=== PATIENT | female | born 1950 | race Two or more races ===

== ENCOUNTER 2018-09-11 11:00 | Emergency (ER) | payer BC ==
[2018-09-11] MEDS ORDERED: FAMOTIDINE IV 20 MG in 0.9 % SODIUM CHLORIDE 100ML 50 ML IVPB ONE (11:50)
[2018-09-11] MEDS ORDERED: 0.9 % SODIUM CHLORIDE 1000ML 1,000 ML IV ONE (11:50)
[2018-09-11] MEDS ORDERED: ONDANSETRON HCL IV 4 MG/2 ML VIAL IV ONE (11:50)
[2018-09-11] MEDS ORDERED: SODIUM CHLORIDE 0.9% 500 ML IV ONE (11:50)
[2018-09-11] MEDS ORDERED: MORPHINE SULFATE 10 MG/ML VIAL IVP ONE ×2 (11:51→13:31)
--- NOTE | 2018-09-11 11:54 | Emergency Department Record ---
History of Present Illness - General Chief Complaint: Abdominal Pain Stated Complaint: ABD PAIN Time Seen by Provider: 09/11/18 11:34 Source: Patient Mode of Arrival: Ambulatory Limitations: No limitations - History of Present Illness Initial Comments: Pt with epigastric pain and vomiting onset last PM. No radiation. Hx of similar in past with surgery to remove a portion of pancrease 4 years ago at [facility]. Also removed GB at that time. This occures occasionally and pt had no relief with her Zofran at home. There is no diarrhea, no fever. No change in diet or travel. Onset/Timin -: Days(s) Location: LUQ, RUQ Radiation: None Migration to: No migration Severity: Moderate Severity scale (1-10): 6 Quality: Cramping Consistency: Constant Improves With: Nothing Worsens With: Nothing Associated Symptoms: Nausea, Vomiting - Related Data Allergies Allergy/AdvReac Type Severity Reaction Status Date / Time No Known Drug Allergies Allergy Verified 09/11/18 11:24 Travel Screening - Travel/Exposure Within Last 30 Days Have you traveled within the last 30 days?: No Review of Systems Constitutional: Denies: Chills, Fever, Weakness Eyes: Denies: Eye discharge, Photophobia ENT: Denies: Congestion Respiratory: Denies: Cough, Hemoptysis Cardiovascular: Denies: Arrhythmia, Chest pain, Palpitations Endocrine: Denies: Fatigue, Polydipsia, Polyuria Gastrointestinal: Reports: As per HPI Genitourinary: Denies: Abnormal menses Musculoskeletal: Denies: Arthralgia, Back pain Skin: Denies: Bruising Neurological: Denies: Abnormal gait, Seizure, Tingling Psychiatric: Denies: Anxiety Hematological/Lymphatic: Denies: Anemia Past Medical History - SOCIAL HISTORY Smoking Status: Never smoker Alcohol Use: Occasional Drug Use: None - RESPIRATORY Hx Respiratory Disorders: No - CARDIOVASCULAR Hx Cardio Disorders: Yes Hx Hypertension: Yes Comment:: high cholesterol - NEURO Hx Neuro Disorders: No - GI Hx GI Disorders: Yes Hx Obstructive Bowel: Yes (Partial bowel obstruction) - Hx Genitourinary Disorders: No - ENDOCRINE Hx Endocrine Disorders: No - MUSCULOSKELETAL Hx Musculoskeletal Disorders: No - PSYCH Hx Psych Problems: Yes Hx Depression: Yes - HEMATOLOGY/ONCOLOGY Hx Hematology/Oncology Disorders: Yes Hx Cancer: Yes (Cervical) Hx Chemotherapy: No Hx Radiation Therapy: No Family Medical History Any Significant Family History?: Yes Hx Cancer: Father Hx Diabetes: Mother Hx Heart Disease: Mother Hx HTN: Mother Physical Exam - General General Appearance: Alert, Oriented x3, Cooperative, Moderate distress - Head Head exam: Atraumatic - Eye Eye exam: Normal appearance, PERRL - ENT ENT exam: Normal exam, Mucous membranes moist, Normal external ear exam, Normal orophraynx, TM's normal bilaterally - Neck Neck exam: Normal inspection, Full ROM. negative: Tenderness - Respiratory Respiratory exam: Normal lung sounds bilaterally. negative: Respiratory distress - Cardiovascular Cardiovascular Exam: Regular rate, Normal rhythm, Normal heart sounds - GI/Abdominal GI/Abdominal exam: Soft, Diminished bowel sounds, Tenderness. negative: Distended, Guarding, Organomegaly, Pulsatile mass, Rebound, Rigid - Rectal Rectal exam: Deferred - Extremities Extremities exam: Normal inspection - Back Back exam: Reports: Normal inspection. Denies: Paraspinal tenderness - Neurological Neurological exam: Alert, Normal gait, Oriented X3 - Psychiatric Psychiatric exam: Normal affect, Normal mood - Skin Skin exam: Normal color. negative: Rash Course Vital Signs 09/11/18 11:20 Temperature 98.0 F Pulse Rate 81 Respiratory 18 Rate Blood Pressure 134/84 Pulse Ox 99 - Reevaluation(s) Reevaluation #1: 09/11/18 14:[address] Feeling much better. Nausea and abd pain is gone. Await result of CT. Reevaluation #2: 09/11/18 15:31 CT with SBO and pt request for continuity of care with Dr. Kendy Johns her surgeon. Paged the doctor without reply. Called [facility] ED and Dr. Miranda accepts pt to ED for admission. CD of CT sent with records. Pt and appreciate [facility] transfer at tehir request. Medical Decision Making - Management Options MDM Management: Additional Work-up Planned (e.g. ADM/Transfer/OP Study) - Data Complexity MDM Data: Labs Ordered and/or Reviewed, X-Ray Ordered and/or Reviewed, EKG Ordered and/or Reviewed - Lab Data Result diagrams: 09/11/18 12:05 09/11/18 12:05 - Radiology Data Radiology results: Report reviewed, Image reviewed Disposition Disposition: Transfer Clinical Impression: Small bowel obstruction, Leukocytosis Disposition: Acute Care Hospital Transfer Transfer To: [facility] ED Reason For Transfer: Pt requests Accepting Physician: Dr. Miranda in ED Time Discussed w/Accepting Physician: 15:34 Condition: (3) Guarded Forms: Patient Portal Access Time of Disposition: 15:34 Quality - Quality Measures Quality Measures: N/A - Blood Pressure Screening Does Patient Have Any of the Following: No Blood Pressure Classification: Pre-Hypertensive BP Reading Systolic Measurement: 134 Diastolic Measurement: 84 Screening for High Blood Pressure: < Pre-Hypertensive BP, F/U Documented > [ [id number]] Pre-Hypertensive Follow-up Interventions: Follow-up with rescreen every year.
[2018-09-11 12:19] LABS: BASO % 0.2 % (0-6); EOS % 0.1 % (0-6); GRAN % 76.2 % (47-80); HEMATOCRIT 40.9 % (35.0-47.0); HEMOGLOBIN 13.7 gm/dl (11.6-16.0); LYMPH % 15.4 % (16-45); MEAN CELL VOLUME 93.6 fl (81-97); MEAN CORPUSCULAR HEMOGLOBIN 31.4 pg (27-33); MEAN CORPUSCULAR HGB CONC 33.5 g/dl (32-36); MEAN PLATELET VOLUME 9.3 fl (7.4-10.4); MONO % 8.1 % (0-9); PLATELET COUNT 424 K/uL (130-400); RED BLOOD COUNT 4.37 M/uL (3.80-5.40); RED CELL DISTRIBUTION WIDTH 13.9 % (11.5-14.5); WHITE BLOOD COUNT W/O DIFF 16.7 K/uL (4.2-12.2)
[2018-09-11 12:22] LABS: BLOOD UREA NITROGEN 20 mg/dL (8-23)
[2018-09-11 12:23] LABS: CREATININE 0.7 mg/dL (0.5-0.9); EST GLOMERULAR FILTRATION RATE > 60 mL/min; TOTAL PROTEIN 7.4 g/dL (6.6-8.7)
[2018-09-11 12:25] LABS: AMYLASE 108 U/L (28-100); GLUCOSE,RANDOM 140 mg/dL (74-109)
[2018-09-11 12:28] LABS: ALB/GLOB RATIO 1.4 (1.1-1.8); ALBUMIN 4.3 g/dL (4.0-5.0); ALKALINE PHOSPHATASE 78 U/L (35-104); ALT/SGPT 17 U/L (<33); AST/SGOT 17 U/L (10.0-35.0); LIPASE 57 U/L (13-60)
[2018-09-11] MEDS ORDERED: HYDROMORPHONE HCL 2 MG/ML VIAL IVP ONE (15:17)
--- NOTE | 2018-09-13 09:20 | CT SCAN REPORT ---
EXAM: POST CONTRAST CT OF THE ABDOMEN AND PELVIS HISTORY: ACUTE UPPER ABDOMINAL PAIN, NAUSEA AND VOMITING. HISTORY OF PREVIOUS PARTIAL PANCREATECTOMY AND CHOLECYSTECTOMY. HISTORY OF TOTAL HYSTERECTOMY. TECHNIQUE: CT of the abdomen and pelvis was obtained with 100 ml Omnipaque 300 intravenous contrast. Comparison: CT abdomen and pelvis 04/18/16. FINDINGS: Minimal bibasilar atelectasis. The gallbladder is surgically absent. Unremarkable appearance of the liver. The spleen is absent. Post surgical change near the pancreatic tail region. Mild prominence of the pancreatic duct , overall similar from prior. Symmetric renal perfusion. Tiny low density bilateral renal cortical lesions, too small to further characterize, but likely representing cysts. The adrenal glands are unremarkable. Mild distention of the stomach. Clustered segment of circumferentially thickened nondistended small bowel loops in the pelvis with mild hyperemia. Proximal to this there are fluid filled mildly dilated small bowel loops measuring up to 3.3 cm in transverse diameter. No bowel wall pneumatosis. The majority of the descending and sigmoid colon are collapsed. Scattered colonic diverticula without evidence of acute diverticulitis. No free air. Trace free fluid in the pelvis. The appendix is normal. Retroperitoneal surgical clips. The uterus is absent. The abdominal aorta is without evidence of aneurysm or dissection. Minimal distention of the urinary bladder. Lower lumbar degenerative findings. IMPRESSION: 1. CIRCUMFERENTIALLY THICKENED SEGMENT OF ILEUM WITHIN THE PELVIS, OVERALL SIMILAR IN APPEARANCE FROM [address] THE ILEAL AND JEJUNAL SMALL BOWEL LOOPS PROXIMAL TO THIS ARE MILDLY DILATED AND CONTAIN FLUID WHICH MAY REPRESENT EARLY SMALL BOWEL OBSTRUCTION OR ILEUS. 2. TRACE FREE FLUID IN THE PELVIS. 3. ADDITIONAL CHRONIC AND INCIDENTAL FINDINGS DESCRIBED IN THE BODY OF THE REPORT. JOB NUMBER: [id number] [facility]
== END 2018-09-11 15:54 | disposition short-term general hospital (02) ==
LOC: ER 11:00
DX: K56.609 Unspecified intestinal obstruction, unspecified as to partial versus complete obstruction (principal); D72.829 Elevated white blood cell count, unspecified; R11.2 Nausea with vomiting, unspecified; I10 Essential (primary) hypertension
CPT/HCPCS: 99285 ×2; 96376; 96365; 96375; 96361; 82150; 83690; 85025; 80053; 74177; Q9967; J3490; J2405; J1170; J2270; J7030

== ENCOUNTER 2019-06-28 14:35 | Observation (INO) | payer BC ==
[2019-06-28] MEDS ORDERED: 0.9 % SODIUM CHLORIDE 1,000 ML BAG IV ONE (14:51)
[2019-06-28] MEDS ORDERED: ONDANSETRON HCL IV 4 MG/2 ML VIAL IV ONE (14:51)
[2019-06-28] MEDS ORDERED: MORPHINE SULFATE 5 MG/ML VIAL IVP ONE (15:02)
--- NOTE | 2019-06-28 15:07 | Emergency Department Record ---
History of Present Illness - General Chief Complaint: Abdominal Pain Stated Complaint: ABDOMINAL PAIN Time Seen by Provider: 06/28/19 14:45 Source: Patient Mode of Arrival: Ambulatory Limitations: No limitations - History of Present Illness Initial Comments: The patient is here due to a one day hx of abdominal pain, and nausea but no vomiting. She did have one loose stool this AM. The patient does have a hx of intermittent SBO's due to a previous abdominal surgery on her pancreas. She also had her GB removed at that time. She normally gets transferred to [facility] because that is where her surgeons are. The patient has had multiple episodes of this si nce her Laparotomy and is always able to open up without the need for further surgery. She usually spends a night in the hospital and then goes home. MD Complaint: Abdominal pain Onset/Timin -: Hour(s) Location: Periumbilical, LUQ Radiation: None Migration to: No migration Quality: Cramping Consistency: Constant Improves With: Nothing Worsens With: Nothing Associated Symptoms: Nausea - Related Data Patient : No Home Medications Medication Instructions Recorded Confirmed Last Taken Losartan/Hydrochlorothiazide 1 each PO QHS 06/28/19 06/28/19 06/28/19 [Losartan-Hctz 100-25 mg Tab] Allergies Allergy/AdvReac Type Severity Reaction Status Date / Time No Known Drug Allergies Allergy Verified 06/28/19 14:43 Travel Screening - Travel/Exposure Within Last 30 Days Have you traveled within the last 30 days?: No Review of Systems Constitutional: Denies: Chills, Fever Eyes: Denies: Eye discharge ENT: Denies: Congestion Respiratory: Denies: Cough Cardiovascular: Denies: Chest pain Endocrine: Denies: Fatigue Gastrointestinal: Reports: Abdominal pain, Nausea. Denies: Diarrhea, Vomiting Genitourinary: Denies: Dysuria Musculoskeletal: Denies: Arthralgia Skin: Denies: Bruising Past Medical History - SOCIAL HISTORY Smoking Status: Never smoker Alcohol Use: None Drug Use: None - RESPIRATORY Hx Respiratory Disorders: No - CARDIOVASCULAR Hx Cardio Disorders: Yes Hx Hypertension: Yes Comment:: high cholesterol - NEURO Hx Neuro Disorders: No - GI Hx GI Disorders: Yes Hx Obstructive Bowel: Yes (Partial bowel obstruction) - Hx Genitourinary Disorders: Yes Hx UTI: Yes - ENDOCRINE Hx Endocrine Disorders: No - MUSCULOSKELETAL Hx Musculoskeletal Disorders: No - PSYCH Hx Psych Problems: Yes Hx Depression: Yes - HEMATOLOGY/ONCOLOGY Hx Hematology/Oncology Disorders: Yes Hx Cancer: Yes (Cervical) Hx Chemotherapy: No Hx Radiation Therapy: No Family Medical History Any Significant Family History?: Yes Hx Cancer: Father Hx Diabetes: Mother Hx Heart Disease: Mother Hx HTN: Mother Physical Exam - General General Appearance: Alert, Oriented x3, Cooperative, No acute distress - Head Head exam: Atraumatic, Normocephalic, Normal inspection - Eye Eye exam: Normal appearance - ENT Throat exam: Normal inspection. negative: Tonsillar erythema, Tonsillar exudate - Neck Neck exam: Normal inspection, Full ROM. negative: Tenderness - Respiratory Respiratory exam: Normal lung sounds bilaterally. negative: Respiratory distress - Cardiovascular Cardiovascular Exam: Regular rate, Normal rhythm, Normal heart sounds - GI/Abdominal GI/Abdominal exam: Soft, Tenderness (There is mild L sided tenderness.). negative: Rebound, Rigid - Extremities Extremities exam: Normal inspection, Full ROM, Normal capillary refill. negative: Tenderness - Back Back exam: Reports: Normal inspection - Neurological Neurological exam: Alert, Normal gait. negative: Abnormal gait, Motor sensory deficit - Psychiatric Psychiatric exam: negative: Anxious Course Vital Signs 06/28/19 14:39 Temperature 97.7 F Pulse Rate 90 Respiratory 20 Rate Blood Pressure 140/110 Pulse Ox 98 - Reevaluation(s) Reevaluation #1: The patient is doing a lot better at this time. Her pain and nausea have resolved and she is feeling MUCH better. I did discuss the case with Dr. Myles and he is willing to admit the patient here at [facility] overnight for further treatment. The patient also agree's with the plan. 06/28/19 15:54 Medical Decision Making - Data Complexity MDM Data: Labs Ordered and/or Reviewed, X-Ray Ordered and/or Reviewed - Lab Data Result diagrams: 06/28/19 15:00 06/28/19 15:00 - Radiology Data Radiology results: Report reviewed (CT: SBO) Disposition Disposition: Admit Clinical Impression: SBO (small bowel obstruction) Disposition: Still a Patient at [facility] Decision to Admit: Admit from ER Decision to Admit Date: 06/28/19 Decision to Admit Time: 15:55 Accepting Physician: Shameka Time Discussed w/Accepting Physician: 15:55 Condition: (2) Stable Time of Disposition: 15:55 Quality - Quality Measures Quality Measures: N/A - Blood Pressure Screening View Details: Yes Does Patient Have Any of the Following: Active Dx of HTN Blood Pressure Classification: Hypertensive Reading Systolic Measurement: 140 Diastolic Measurement: 110 Screening for High Blood Pressure: Patient Exclusion, Hx of HTN [G9744]
[2019-06-28 15:22] LABS: ABSOLUTE NEUTROPHIL COUNT 13.85; BASO % 0.3 % (0-6); EOS % 0.7 % (0-6); GRAN % 77.1 % (47-80); HEMATOCRIT 42.1 % (35.0-47.0); HEMOGLOBIN 13.8 gm/dl (11.6-16.0); LYMPH % 16.7 % (16-45); MEAN CELL VOLUME 93.1 fl (81-97); MEAN CORPUSCULAR HEMOGLOBIN 30.5 pg (27-33); MEAN CORPUSCULAR HGB CONC 32.8 g/dl (32-36); MEAN PLATELET VOLUME 9.5 fl (7.4-10.4); MONO % 5.2 % (0-9); PLATELET COUNT 473 K/uL (130-400); RED BLOOD COUNT 4.52 M/uL (3.80-5.40); RED CELL DISTRIBUTION WIDTH 14.2 % (11.5-14.5)
[2019-06-28 15:41] LABS: BLOOD UREA NITROGEN 22 mg/dL (8-23); CREATININE 0.6 mg/dL (0.5-0.9); EST GLOMERULAR FILTRATION RATE > 60 mL/min; TOTAL PROTEIN 8.4 g/dL (6.6-8.7)
[2019-06-28 15:42] LABS: LIPASE 47 U/L (13-60)
[2019-06-28 15:43] LABS: GLUCOSE,RANDOM 146 mg/dL (74-109)
[2019-06-28 15:46] LABS: ALBUMIN 4.7 g/dL (4.0-5.0); ALKALINE PHOSPHATASE 85 U/L (35-104); ALT/SGPT 24 U/L (<33); AST/SGOT 25 U/L (10.0-35.0)
[2019-06-28 15:47] LABS: BILIRUBIN,DIRECT < 0.2 mg/dL (0-0.3)
[2019-06-28] MEDS ORDERED: 0.9 % SODIUM CHLORIDE 1000ML 1,000 ML IV ONE (16:23)
[2019-06-28] MEDS ORDERED: MORPHINE SULFATE 5 MG/ML VIAL IVP PRN (16:23)
[2019-06-28 16:29] LABS: URINE APPEARANCE CLEAR; URINE BILIRUBIN NEGATIVE (NEGATIVE); URINE BLOOD NEGATIVE (NEGATIVE); URINE COLOR YELLOW; URINE GLUCOSE (UA) NEGATIVE (NEGATIVE); URINE KETONE NEGATIVE (NEGATIVE); URINE LEUKOCYTE ESTERASE NEGATIVE (NEGATIVE); URINE NITRITE NEGATIVE (NEGATIVE); URINE PROTEIN NEGATIVE (NEGATIVE); URINE UROBILINOGEN 0.2 E.U./dL (0.20 - 1.00)
[2019-06-28] MEDS: PANTOPRAZOLE SODIUM IV 40 MG VIAL IV SCH (16:38)
[2019-06-28] MEDS: HYDROMORPHONE HCL 2 MG/ML VIAL IVP PRN ×2 (16:43→20:47)
[2019-06-28] MEDS ORDERED: FLU VAC QS 2019-20 (INPT, 6MO+) 60MCG/0.5ML IM ONE (17:00)
[2019-06-28] MEDS: ONDANSETRON HCL IV 4 MG/2 ML VIAL IVP PRN ×2 (18:48→22:53)
[2019-06-28] MEDS ORDERED: ENOXAPARIN 40 MG/0.4 ML SYR SQ SCH ×2 (21:15→22:00)
[2019-06-28] MEDS ORDERED: LOSARTAN POTASSIUM 100 MG TABLET PO SCH (22:00)
[2019-06-28] MEDS ORDERED: HYDROCHLOROTHIAZIDE 25 MG TABLET PO SCH (22:00)
[2019-06-29] MEDS: HYDROMORPHONE HCL 2 MG/ML VIAL IVP PRN (01:09)
[2019-06-29 06:39] LABS: ABSOLUTE NEUTROPHIL COUNT 9.49; BASO % 0.2 % (0-6); EOS % 0.2 % (0-6); GRAN % 59.3 % (47-80); HEMATOCRIT 34.8 % (35.0-47.0); LYMPH % 27.8 % (16-45); MEAN CELL VOLUME 96.1 fl (81-97); MEAN CORPUSCULAR HEMOGLOBIN 30.3 pg (27-33); MEAN CORPUSCULAR HGB CONC 31.6 g/dl (32-36); MEAN PLATELET VOLUME 9.4 fl (7.4-10.4); MONO % 12.5 % (0-9); PLATELET COUNT 389 K/uL (130-400); RED BLOOD COUNT 3.62 M/uL (3.80-5.40); RED CELL DISTRIBUTION WIDTH 14.3 % (11.5-14.5)
[2019-06-29 06:50] LABS: BLOOD UREA NITROGEN 21 mg/dL (8-23); CREATININE 0.6 mg/dL (0.5-0.9); EST GLOMERULAR FILTRATION RATE > 60 mL/min; GLUCOSE,RANDOM 108 mg/dL (74-109)
--- NOTE | 2019-06-29 08:30 | History and Physical Report ---
DATE: 06/28/2019 at 6 p.m. CHIEF COMPLAINT: Abdominal pain. HISTORY OF PRESENT ILLNESS: This 68-year-old female presented to the emergency department at about 1440 hours. She stated that she developed left upper and mid periumbilical abdominal pain this morning with nausea approximately 4 hours prior to coming to the ER. She had one watery diarrhea stool. She had a history of bowel obstruction and this feels similar. She states that she also wants to be checked for UTI because she has had problems with that with klebsiella. She was seen in the emergency department by Dr. Brizuela and he informed me that she normally gets transferred to [facility] because that is where she had her pancreatic surgery. She had multiple episodes of small bowel obstructions since her laparotomy and it always opened up spontaneously without further surgery. She usually spends 1-2 nights in the hospital and then goes home after pain control and maybe an NG tube. She was diagnosed with small bowel obstruction on CT scan and she is admitted to the hospital. MEDICATIONS: On admission: 1. Losartan/hydrochlorothiazide 100/25 one a day at h.s. 2. Lipitor 20 mg daily. ALLERGIES: No known drug allergies. PAST SURGICAL HISTORY: Pancreatic pseudocyst removal 5 years ago in 2013, hysterectomy, and a cholecystectomy. Hysterectomy was in 2011. FAMILY/PSYCHOSOCIAL HISTORY: Father had cancer. Mother had diabetes. Heart disease in mother and hypertension. Never smoked. No alcohol or drug use. REVIEW OF SYSTEMS: HEENT: Pupils are equal, round, and reactive to light and accommodation. Extraocular muscles are intact. Throat is clear. Nose is clear. Tympanic membranes are cage. Neck: Supple. No jugular venous distention. No hepatojugular reflux. Cardiovascular: No chest pain, palpitations, or arrhythmia. Respiratory: No shortness of breath, cough, cold, or congestion. Gastrointestinal: See Chief Complaint. She has abdominal pain with diarrhea, one episode. No vomiting. Nausea. Genitourinary: No dysuria, hematuria, frequency, or burning on urination. She said she has had some troubles with klebsiella urinary tract infection, treated a couple of times. We did a urine in the emergency department which was negative. She requested that. Musculoskeletal: No joint or bone abnormalities. Neurological: No CVA, paralysis, or paresthesias. Endocrine: No diabetes or thyroid disease. Integument: No rash, ulcers, change in moles, or yellow skin. PHYSICAL EXAMINATION: VITALS: Height 5 feet 1 inch, weight 134 pounds. Temperature 97.5, pulse 88, blood pressure 123/72, respiratory rate 18, pulse ox 98% on room air. HEENT: Pupils are equal, round, and reactive to light and accommodation. Extraocular muscles are intact. Throat is clear. Nose is clear. Tympanic membranes are cage. NECK: Supple. No jugular venous distention. No hepatojugular reflux. No carotid bruits. Thyroid is smooth. CARDIOVASCULAR: Regular rate and rhythm without murmurs, clicks, rubs, or gallops. RESPIRATORY: Clear to auscultation and percussion. ABDOMEN: Soft. There is tenderness in the periumbilical and left upper quadrant. No rebound, rigidity, or guarding. EXTREMITIES: No pitting edema. No cyanosis, no clubbing. Full range of motion. Peripheral pulses are good. BREASTS: Exam deferred. GYNECOLOGICAL: Exam deferred. RECTAL: Exam deferred. NEUROLOGIC: Cranial nerves II-XII intact. No gross defects. Sensation normal, strength normal. Deep tendon reflexes equal bilaterally with Babinski negative. MENTAL STATUS: Alert and oriented x3. IMPRESSION: 1. Partial small bowel obstruction. 2. History of pancreatic pseudocyst resection in 2014 and numerous episodes of small bowel obstructions that resolved spontaneously. PLAN: IV fluids. Pain control with Dilaudid 1 mg q.4 h. p.r.n. An NG tube will be placed if the pain intensifies or if she starts vomiting. MTDD
--- NOTE | 2019-06-29 08:50 | Discharge Note ---
VTE H&P Assessment - Risk for VTE Risk for VTE: Yes Risk Level: Moderate Risk Assessment Date: 06/28/19 Risk Assessment Time: 18:00 VTE Orders Placed or Will Be Placed: Yes Discharge Medications - Discharge Medications Prescriptions: Ondansetron HCl [Zofran] 4 mg PO Q6HR #10 tablet Home Medications: Ambulatory Orders Atorvastatin Calcium [Lipitor] 20 mg PO DAILY 04/18/16 [Last Taken Unknown] Losartan/Hydrochlorothiazide [Losartan-Hctz 100-25 mg Tab] 1 each PO QHS 06/28/19 [Last Taken 06/28/19] Ondansetron HCl [Zofran] 4 mg PO Q6HR #10 tablet 06/29/19 [Last Taken Unknown] Discharge Note - Date Date of Discharge Note: 06/29/19 Disposition: Home, Self-Care Condition: (1) Good Instructions: Abdominal Pain (ED) Additional Instructions: follow up with Dr Estrella in one week tylenol for pain and she could use her vicodin she has at if pain gets worse clear liquids for 24 hours and slowly advance diet tomorrow Forms: Patient Portal Access Activity at Discharge: Increase Activity as Tolerated
[2019-06-29] MEDS: PANTOPRAZOLE SODIUM IV 40 MG VIAL IV SCH (10:51)
--- NOTE | 2019-06-29 12:42 | CT SCAN REPORT ---
EXAM: CT OF THE ABDOMEN AND PELVIS WITHOUT CONTRAST HISTORY: MID ABDOMINAL PAIN, NAUSEA AND BLOATING, HISTORY OF SMALL BOWEL OBSTRUCTION. TECHNIQUE: Without administration of intravenous contrast contiguous axial sections were obtained through the abdomen and pelvis. Coronal and sagittal reformats. Comparison: 09/11/18. FINDINGS: Curvilinear opacities are noted at the lung bases suggesting areas of lung scarring or subsegmental atelectasis. No free air evident within the abdomen or pelvis. Noncontrast technique limits evaluation of the solid organs. The spleen appears absent. Calcifications of the pancreatic tail continue in similar fashion. Vascular versus sequela of chronic pancreatitis. No renal, ureteral, or bladder stones evident. No hydronephrosis. The visualized portions of the solid organs are otherwise grossly unremarkable as seen. The gallbladder is surgically absent. There is prominence of the extrahepatic bile duct in similar fashion. No abdominal aortic aneurysm. Evaluation of the vasculature is otherwise limited. Normally dilated loops of small bowel present within the mid abdomen and pelvis with the transition point appearing to be within the mid pelvis. The distal small bowel loops before the obstruction are filled with fecal like material. The distal small bowel loops as well as the colon are decompressed. The appendix is normal. No retroperitoneal or mesenteric adenopathy evident. The abdominal wall is grossly intact. There are degenerative changes of the spine most definite at L4-L5 and L5-S1. There are surgical clips of the inferior retroperitoneum. IMPRESSION: 1. FINDINGS CONSISTENT WITH SMALL BOWEL OBSTRUCTION, TRANSITION POINT LIKELY WITHIN THE MID PELVIS. 2. CHOLECYSTECTOMY WITH PROMINENCE OF THE EXTRAHEPATIC BILE DUCT, GROSSLY UNCHANGED. 3. CALCIFICATIONS OF THE PANCREATIC TAIL APPEAR UNCHANGED. DIFFERENTIAL CONSIDERATIONS ABOVE. 4. THE ER PHYSICIAN WAS NOTIFIED BY VOICE CLIP. JOB NUMBER: [id number] MTDD
--- NOTE | 2019-06-29 12:55 | RADIOLOGY REPORT ---
EXAM: ABDOMEN, TWO VIEWS HISTORY: FOLLOW-UP SMALL BOWEL OBSTRUCTION. TECHNIQUE: AP supine and upright views of the abdomen were obtained. Comparison: CT of the abdomen and pelvis without contrast dated 06/28/19 at 15:17. FINDINGS: Surgical clips are again noted within the right upper quadrant and mid abdomen. The colon is not optimally visualized. There may be small amounts of gas and stool within. There is a mildly dilated segment of small bowel in the left upper abdomen seen on the supine image. Also on the supine image are several gas collections oriented in a linear fashion in the right hemipelvis consistent with a string of sarah sign. There are also several short air fluid levels present in the mid to upper abdomen on the frontal view. These findings are again suspicious for at least partial small bowel obstruction. It is difficult to determine if there has been interval change given the relative paucity of gas within the small bowel. No new mass, organomegaly, or suspicious calcification is seen. No free intraperitoneal air. Degenerative changes are scattered within the visualized spine, sacroiliac joints, and hips. IMPRESSION: FINDINGS AGAIN SUSPICIOUS FOR AT LEAST PARTIAL SMALL BOWEL OBSTRUCTION. EVALUATION FOR INTERVAL CHANGE IS DIFFICULT GIVEN RELATIVE LACK OF AIR WITHIN THE SMALL BOWEL SEGMENTS. NO FREE INTRAPERITONEAL AIR. JOB NUMBER: [id number] MTDD
--- NOTE | 2019-06-29 14:01 | Discharge Summary ---
This is an observation patient. DISCHARGE DIAGNOSES: 1. Small bowel obstruction, resolving. 2. Status post tail of the pancreas removed and spleen removed from possible pseudocyst or chronic pancreatitis. 3. Status post hypercholesterolemia. 4. Status post hypertension. ATTENDING PHYSICIAN: Wilmer Myles DO REASON FOR HOSPITALIZATION: This 68-year-old female presented to the emergency department with left upper quadrant and periumbilical abdominal pain which started the day of admission. She states that she is feeling like this is a small bowel obstruction. She has had this happen many times before. She has to go in for IV fluids and pain medication and it usually resolves spontaneously. This has been happening since her pancreatic surgery in 2013. Her last hospitalization was in January 2019 in [place], a similar episode. She also had a klebsiella urinary tract infection. Urine in our emergency department was negative for a UTI. The patient was admitted for IV fluids and pain control. SIGNIFICANT FINDINGS: The CT scan of the abdomen and pelvis without contrast revealed small bowel obstruction with mid pelvic transition point. A repeat 2- view of his abdomen is pending at this time. On the day of discharge, WBC 16,000, hemoglobin 11, platelet count 389,000, BUN 21, creatinine 0.6, potassium 3.4, sodium 144. The initial WBC in the emergency department was 18,000. Elevated white count secondary to pain. Urine was negative. THERAPY PROVIDED: The patient was given IV fluids and Dilaudid for pain, 1 mg every 4 hours. Her last doses of Dilaudid and Zofran were about midnight last night. She is tolerating clear liquids at this time. HOSPITAL COURSE: Improved. Less pain. She would like to go home. She is tolerating clear liquids. We are awaiting pending x-ray of the abdomen 2 view. CONDITION ON DISCHARGE: Much improved. DISCHARGE INSTRUCTIONS: Follow up with Dr. Capellan in about 1 week. Clear liquids for 24 hours. She is to use Tylenol for pain. She also has Vicodin at home which she could use if it gets real severe. MTDD
== END 2019-06-29 11:33 | disposition home or self-care (01) ==
LOC: ER 14:35 → MEDSURG 16:15
PROVIDERS: ADMIT Emergency Medicine; ATTEND Emergency Medicine
DX: K56.600 Partial intestinal obstruction, unspecified as to cause (principal); R11.0 Nausea; I10 Essential (primary) hypertension; E78.00 Pure hypercholesterolemia, unspecified; Z87.19 Personal history of other diseases of the digestive system; Z90.49 Acquired absence of other specified parts of digestive tract; Z90.410 Acquired total absence of pancreas; Z23 Encounter for immunization
CPT/HCPCS: 99285 ×2; 96374; 96375; 83690; 85025 ×2; 80076; 80048 ×2; 81003; 74019; 74176; 90686; G0378 ×2; J2405; J1170 ×2; 99217; 99220; C9113; J1650; J7030